=== PATIENT | female | born 1965 | race Caucasian/White ===

== ENCOUNTER → 2022-03-12 12:40 | Outpatient (CLI) | payer BC, SELFPAY ==
--- NOTE | ~2022-03-12 | XR_ITS ---
XR wrist RT min 3V DATE: 03/12/2022 13:00 INDICATION: Right wrist pain. No injury. TECHNIQUE: 4 views COMPARISON: None FINDINGS: There is osteoarthritis at the first carpometacarpal and some of the interphalangeal joints , primarily distal interphalangeal joints. No fracture or dislocation, periosteal reaction or bone destruction, erosive change or chondrocalcino sis. IMPRESSION: Mild osteoarthritis Reviewed, dictated and finalized at location B. IMPRESSION: Mild osteoarthritis
--- NOTE | ~2022-03-12 | XR_ITS ---
XR wrist LT min 3V DATE: 03/12/2022 13:00 INDICATION: Left wrist pain. No injury. TECHNIQUE: 4 views COMPARISON: None FINDINGS: There is mild osteoarthritis at the first carpometacarpal and at some of the interphalangea l joints, greater at the DIP joints. No fracture or dislocation, periosteal reaction or bone destruction, erosive change or chondrocalcino sis. IMPRESSION: Mild osteoarthritis Reviewed, dictated and finalized at location B. IMPRESSION: Mild osteoarthritis
== END ==
DX: M19.031 Primary osteoarthritis, right wrist (principal); M19.032 Primary osteoarthritis, left wrist
CPT/HCPCS: 73110

== ENCOUNTER 2022-04-24 09:25 | Outpatient (CLI) | payer BC, SELFPAY ==
--- NOTE | ~2022-04-24 | MMUS_ITS ---
EXAMINATION: MM diagnostic [facility] BI w niki, US breast LT limited HISTORY: Left breast lump, present since 2014 but increased in size recently TECHNIQUE: ML, MLO and CC 3-D tomosynthesis images of both breasts were performed and synthetic 2-D i mages were generated. CAD analysis was submitted and interpreted. High resolution targeted lower mid left breast ultrasound at area of clinical complaint of enlarging breast lump breast was performed. COMPARISON: 10/18/2015 diagnostic left mammogram 09/12/2015 diagnostic left mammogram and limited left breast ultrasound FINDINGS: MAMMOGRAPHIC FINDINGS: There is an approximately 2.5 x 3 cm circumscribed low-density opacity at the area of clinical compla int of left breast lump in the lower central posterior left breast. No other suspicious mass of either breast is noted. Numerous bilateral benign breast calcifications are noted, including some prominent calcifications of fat necrosis, benign, on the left. ULTRASOUND: 5:00 8 cm from nipple: There is a parallel circumscribed heterogeneous hypoechoic 18.5 x 24.8 x 33.5 mm mass, with through transmission. While the sonographic and mammographic features are more suggesti ve of benign behavior, the increase in size and postmenopausal patient is of concern and warrants ult rasound-guided biopsy of this mass. IMPRESSION: 1. Enlarged up to 3.3 cm heterogeneous solid mass 5:00 8 cm from nipple 2. Ultrasound-guided biopsy is recommended BI-RADS category 4, suspicious findings. Reviewed, dictated and finalized at location A. IMPRESSION: 1. Enlarged up to 3.3 cm heterogeneous solid mass 5:00 8 cm from nipple 2. Ultrasound-guided biopsy is recommended BI-RADS category 4, suspicious findings.
== END 2022-04-24 09:26 | disposition home or self-care (01) ==
LOC: ANHIMG 09:27
PROVIDERS: PCP Internal Medicine; Visit Provider Nurse Practitioner
DX: R92.8 Other abnormal and inconclusive findings on diagnostic imaging of breast (principal)
CPT/HCPCS: 76642; 77062; 77066; G0279

== ENCOUNTER 2022-04-24 09:28 | Outpatient (CLI) | payer BC, SELFPAY ==
--- NOTE | 2022-04-24 11:30 | NEURO_ITS ---
Impression: # Complains of pain and numbness of hands. # Mild evolving bilateral Carpal Tunnel Syndrome. # Needle/EMG exam mildly neurogenic. # Higher involvement needs to be ruled out. Nerve Conduction Studies Anti Sensory Summary Table Stim Site NR Peak (ms) P-T Amp (?V) Site1 Site2 Delta-P (ms) Dist (cm) Rito (m/s) Left Median Anti Sensory (2-3nd Digit) Wrist 2.8 94.3 Wrist 2-3nd Digit 2.8 14.0 50 Wrist 3.1 69.2 Wrist 2-3nd Digit 2.8 14.0 50 Right Median Anti Sensory (2-3nd Digit) Wrist 2.8 53.1 Wrist 2-3nd Digit 2.8 14.0 50 Wrist 2.9 75.8 Wrist 2-3nd Digit 2.8 14.0 50 Left Radial Anti Sensory (Base 1st Digit) Wrist 2.3 29.9 Wrist Base 1st Digit 2.3 0.0 Right Radial Anti Sensory (Base 1st Digit) Wrist 2.4 30.5 Wrist Base 1st Digit 2.4 0.0 Left Ulnar Anti Sensory (5th Digit) Wrist 2.2 72.1 Wrist 5th Digit 2.2 14.0 64 Right Ulnar Anti Sensory (5th Digit) Wrist 2.3 48.3 Wrist 5th Digit 2.3 14.0 61 Motor Summary Table Stim Site NR Onset (ms) O-P Amp (mV) Site1 Site2 Delta-0 (ms) Dist (cm) Rito (m/s) Left Median Motor (Abd Poll Brev) Wrist 3.3 2.4 Elbow Wrist 5.0 28.0 56 Elbow 8.3 1.6 Right Median Motor (Abd Poll Brev) Wrist 3.9 2.5 Elbow Wrist 4.9 26.0 53 Elbow 8.8 1.9 Left Ulnar Motor (Abd Dig Minimi) Wrist 2.1 4.7 A Elbow Wrist 4.9 28.0 57 A Elbow 7.0 3.7 Right Ulnar Motor (Abd Dig Minimi) Wrist 2.7 4.3 A Elbow Wrist 4.8 27.0 56 A Elbow 7.5 3.5 F Wave Studies NR F-Lat (ms) L-R F-Lat (ms) Left Median (Mrkrs) (Abd Poll Brev) 26.43 0.86 Right Median (Mrkrs) (Abd Poll Brev) 27.29 0.86 Left Ulnar (Mrkrs) (Abd Dig Min) 27.19 0.39 Right Ulnar (Mrkrs) (Abd Dig Min) 27.58 0.39 EMG Side Muscle Nerve Root Ins Act Fibs Amp Dur Recrt Comment Right 1stDorInt Ulnar C8-T1 Nml Nml Nml >12ms Reduced Right Ext Indicis Radial (Post Int) C7-8 Nml Nml Nml Nml Nml Right Ext Digitorum Radial (Post Int) C7-8 Nml Nml Nml Nml Nml Right BrachioRad Radial C5-6 Nml Nml Nml Nml Nml Right PronatorTeres Median C6-7 Nml Nml Nml Nml Nml Right Abd Poll Brev Median C8-T1 Nml Nml Nml Nml Nml Left 1stDorInt Ulnar C8-T1 Nml Nml Nml >12ms Reduced Left Ext Indicis Radial (Post Int) C7-8 Nml Nml Nml Nml Nml Left Ext Digitorum Radial (Post Int) C7-8 Nml Nml Nml Nml Nml Left BrachioRad Radial C5-6 Nml Nml Nml Nml Nml Left PronatorTeres Median C6-7 Nml Nml Nml Nml Nml Left Abd Poll Brev Median C8-T1 Nml Nml Nml Nml Nml MTDD
== END 2022-04-24 09:29 | disposition home or self-care (01) ==
PROVIDERS: PCP Internal Medicine; Visit Provider Plastic Surgery
DX: R20.2 Paresthesia of skin (principal); G56.03 Carpal tunnel syndrome, bilateral upper limbs
CPT/HCPCS: 76642; 77062; 77066; 95886; 95911; G0279

== ENCOUNTER 2022-07-16 10:04 | Outpatient (CLI) | payer BC, SELFPAY ==
--- NOTE | ~2022-07-16 | DEXA_ITS ---
Bone Density Report Name: KALPANA WOOD Age: 57 Sex: Female Ethnicity: White Date of : 1965 Indication: postmenopausal; screening for osteoporosis; prior fracture; Referring Provider: LAURYN RILEY Study: Bone densitometry was performed. Exam Date: July 16, 2022 Accession number: [id number] Bone Density: Region BMD T-score Z-score Classification AP Spine(L1-L4) 1.219 1.6 2.7 Normal Femoral Neck (Left) 0.775 -0.7 0.4 Normal Total Hip (Left) 0.891 -0.4 0.3 Normal Femoral Neck (Right) 0.819 -0.3 0.8 Normal Total Hip (Right) 0.920 -0.2 0.5 Normal Total Hip Mean 0.905 -0.3 0.4 Normal World Health Organization criteria for BMD impression classify patients as: Normal (T-score at or above -1.0), Osteopenia (T-score between -1.0 and -2.5), or Osteoporosis (T-score at or below -2.5). 10-year Fracture Risk: FRAX not reported because: All T-scores for Spine Total, Hip Total, Femoral Neck at or above -1.0 Clinical Information Provided by Patient: Has had a low trauma fracture Smokes Patient maximum height was 65 Menopause Age: 53 No regular weight bearing exercise Drinks caffeinated beverages Onset of menses at age 18 Number of children 1 Impression: The patient has normal bone mass. The patient has risk factors, including: smoking, previous fracture. Discussion: BONE DENSITY IS ABOVE THE MINIMUM DESIRABLE LEVEL AT ALL SKELETAL SITES TESTED. This patient?s bone mineral density is above the minimum desirable level (T-score -1.0 or better) at all sites measured. The patient should follow a healthful lifestyle (good nutrition with adequate calcium and vitamin D, and appropriate weight-bearing exercise). Follow-Up: Consider repeating this study in 5 years or sooner if there is some new clinical indication. Reported by: NIRAV on 07/16/2022 10:31:00 AM. Reviewed, dictated and finalized at location AShe AYOUB
== END 2022-07-16 10:05 | disposition home or self-care (01) ==
PROVIDERS: PCP Internal Medicine; Visit Provider Nurse Practitioner
DX: Z78.0 Asymptomatic menopausal state (principal)
CPT/HCPCS: 77080

== ENCOUNTER 2022-07-23 12:35 | Outpatient (CLI) | payer BC, SELFPAY ==
--- NOTE | ~2022-07-23 | MMUS_ITS ---
EXAMINATION: US breast biopsy LT w image, MM post biopsy invasive LT DATE: 07/23/2022 14:17 (accession [id number]), 07/23/2022 14:08 (accession [id number]) INDICATION: Enlarging mass in the lower outer quadrant of the left breast. Ultrasound-guided core bio psy is requested to evaluate for malignancy. TECHNIQUE AND FINDINGS: The risks and potential benefits of the procedure were discussed with the patient including bleeding and infection. A time out was performed. The skin of the left breast was prepared and draped in usual sterile fashion. 1% lidocaine was used for superficial anesthesia. 1% lidocaine with epinephrine was used for deep anesthesia. A vacuum-assisted biopsy needle was advanced through to the outer edge of the region of interest from a lateral approach utilizing sonographic guidance. A total of five tissue core samples were obtained through the lesion. A tissue marker clip was then placed at the biopsy site. Hemostasis was achieved . A sterile bandage was applied. The patient tolerated procedure well and there was no evidence of immediate complication. The patient was given verbal instructions to return to the Emergency Department in the event of severe breast pa in or rapid breast enlargement. A two view left breast mammogram was obtained to document tissue flower er clip placement. IMPRESSION: 1. Successful ultrasound-guided vacuum-assisted biopsy of left breast mass with tissue marker placeme nt. Reviewed, dictated and finalized at location A. IMPRESSION: 1. Successful ultrasound-guided vacuum-assisted biopsy of left breast mass with tissue marker placement.
== END 2022-07-23 12:36 | disposition home or self-care (01) ==
PROVIDERS: PCP Internal Medicine; Visit Provider Nurse Practitioner
DX: N63.20 Unspecified lump in the left breast, unspecified quadrant (principal)
CPT/HCPCS: 19083; 88305; A4648

== ENCOUNTER 2023-04-08 09:06 | Emergency (ER) | payer BC, SELFPAY ==
[2023-04-08 09:14] VITALS: BP 125/81; PULSE 96; RESP 16; TEMP 36.8; O2SAT 98
--- NOTE | 2023-04-08 09:14 | ED.SKABFB ---
HPI - Skin/Abscess/Foreign Bdy General Chief complaint: Skin/Abscess/Foreign Body Stated complaint: Poison Selina Time Seen by Provider: 04/08/23 09:14 Source: patient and RN notes reviewed History of Present Illness HPI narrative: Patient is a 57-year-old female who presents to urgent care with complaints of poison selina to bilateral legs, arms, feet and now feeling the tingling/rash on her face. Patient states that she believes she got in contact with the poison selina approximately 1 week ago while working in the [employer]. Patient has been using itch spray and triamcinolone. No other acute complaints. No acute distress noted. Patient aware of the plan of care. Some parts of this dictation were generated by voice recognition software and may contain typographical and/or grammatical inaccuracies. Related Data Allergies Allergy/AdvReac Type Severity Reaction Status Date / Time No Known Allergies Allergy Unknown Verified 01/21/23 09:56 Review of Systems Review of Systems: CONSTITUTIONAL: Denies fever, chills, or sweats. EYES: Denies visual changes, redness, or discharge. ENT: Denies rhinorrhea, congestion, sore throat, or otalgia. CARDIOVASCULAR: Denies chest pain, palpitations, or edema. RESPIRATORY: Denies cough or dyspnea. GASTROINTESTINAL: Denies abdominal pain, nausea, vomiting, or diarrhea. GENITOURINARY: Denies dysuria or hematuria. SKIN: Reports of poison selina to bilateral feet, bilateral legs, and right arm MUSCULOSKELETAL: Denies back pain, joint pain, or myalgia. NEUROLOGIC: Denies headache, numbness, or weakness. All other systems reviewed are negative, except as documented in HPI. FORMERLY [facility], [facility] Past Medical History Medical History (Updated 04/08/23 @ 09:39 by MARSHA Sifuentes) Breast lump Difficulty sleeping Dyslipidemia Surgical History Surgical History H/O abdominoplasty H/O breast biopsy Hx of breast reduction, elective Family History Family History Father Hypertension Family history of elevated blood lipids Family history of diabetes mellitus in first degree relative Lung cancer Bone cancer Mother Hypertension Family history of elevated blood lipids Family history of diabetes mellitus in first degree relative Other Bladder cancer Social History Social History Smoking packs per day: 0.75 Smoking cigarettes per day: 15.0 Smoking status: Current every day smoker Tobacco type: cigarettes Alcohol intake: current Drinks per week: 10 Alcohol use details: social Substance use: never Substance use type: does not use Lack of Transportation: No Lack of Food: Never True Current Housing: I Have Housing Concerned About Future Housing: No Difficulty Paying Gas/Electric Bills: No Difficulty Paying for Meds: No Currently Unemployed: No Education: Trade/Vocational Certificate Difficulty w/ Childcare or Family Care: No Living arrangements: with family Occupation/Education: occupation Gender identity (if verbalized by the patient): Female Sexual Orientation (if Verbalized by the Patient): Straight or Heterosexual Comments At the time of my signature, I reviewed and agree with the nursing past medical, surgical, social, and family history. There is no relevant family history pertinent to the patient complaint. Exam Narrative: GENERAL: This is a well-nourished, well-developed patient, in no apparent distress. HEAD: normocephalic, atraumatic. EYES: PERRL. Sclera clear/white. Vision is grossly intact. EARS: External ears normal NOSE: External nose normal with no obvious nasal discharge, nares without redness, no rhinorrhea. THROAT: Mucous membranes moist NECK: Neck supple SKIN: Raised pureed take erythema bruise dermatitis noted to posterior right lower leg right upper, bilateral dorsal feet,
== END 2023-04-08 09:44 | disposition home or self-care (01) ==
PROVIDERS: Emergency Provider Nurse Practitioner Family
DX: L23.7 Allergic contact dermatitis due to plants, except food (principal); F17.210 Nicotine dependence, cigarettes, uncomplicated; E78.5 Hyperlipidemia, unspecified
CPT/HCPCS: 99213; G0463

== ENCOUNTER → 2023-10-05 09:47 | Outpatient (CLI) | payer BC, SELFPAY ==
--- NOTE | ~2023-10-05 | MM_ITS ---
EXAMINATION: MM screening [facility] BI w niki HISTORY: Screening mammogram TECHNIQUE: Craniocaudal and mediolateral oblique 3-D tomosynthesis images were obtained and synthetic 2-D images were generated. CAD analysis was submitted and interpreted. COMPARISON: 04/24/2022, 10/18/2015, 09/12/2015, 08/31/2015, 08/17/2014 BREAST PARENCHYMAL COMPOSITION: There are scattered areas of fibroglandular density. FINDINGS: There are stable areas of fat necrosis in the inner left breast. In addition, there is a le ft breast mass with biopsy change. No suspicious mass, calcification, or architectural distortion are identified in either breast to suggest malignancy. There has been no suspicious interval change. IMPRESSION: 1. No mammographic evidence of malignancy. 2. Recommend routine screening mammography in one year. BI-RADS Category 2: Benign finding(s). Reviewed, dictated and finalized at location A. IC RELATIONS SPECIALIST
== END ==
PROVIDERS: PCP Student in an Organized Health Care Education/Training Program; Visit Provider Student in an Organized Health Care Education/Training Program
DX: Z12.31 Encounter for screening mammogram for malignant neoplasm of breast (principal)
CPT/HCPCS: 77063; 77067

== ENCOUNTER 2023-12-21 09:09 | Emergency (ER) | payer BC, SELFPAY ==
--- NOTE | ~2023-12-21 | XR_ITS ---
EXAMINATION: XR chest 2V DATE: 12/21/2023 09:49 INDICATION: Cough and congestion TECHNIQUE: PA and lateral views of the chest were obtained. COMPARISON: Chest radiograph dated 09/09/2014 FINDINGS: Mild opacities at the left costophrenic angle which could represent atelectasis or pneumonia. No othe r airspace opacities, pulmonary edema, pleural effusion or pneumothorax. The cardiomediastinal silhou ette is normal. Mild S-shaped curvature of the thoracic and lumbar spine with mild to moderate spondy losis. Chronic mild anterior wedging of a lower thoracic vertebral body. IMPRESSION: 1. Mild opacities at the left costophrenic angle which could represent atelectasis or pneumonia. Reviewed, dictated and finalized at location A. CUTTER APPRENTICE IMPRESSION: 1. Mild opacities at the left costophrenic angle which could represent atelecta sis or pneumonia.
[2023-12-21 09:20] VITALS: BP 124/83; PULSE 118; RESP 16; TEMP 36.7; O2SAT 96
--- NOTE | 2023-12-21 09:42 | ED.URI ---
HPI - URI/Sore Throat General Chief Complaint: Upper Respiratory Infection Stated Complaint: Flu symptoms Time Seen by Provider: 12/21/23 09:35 Source: patient and RN notes reviewed Mode of arrival: ambulatory Limitations: no limitations History of Present Illness HPI Narrative: Patient presents today complaining of 5 day history of cough, body aches, fever up to 102, and chest wall pain with coughing. Denies congestion, rhinorrhea, sore throat. She has tried some homeopathic mouth drops that are supposed to help with chest congestion. Denies history of asthma or COPD. She is a smoker. Related Data Allergies Allergy/AdvReac Type Severity Reaction Status Date / Time No Known Allergies Allergy Unknown Verified 12/21/23 09:40 Review of Systems Review of Systems: CONSTITUTIONAL: Denies chills, or sweats.+ body aches, fever EYES: Denies visual changes, redness, or discharge. ENT: Denies rhinorrhea, congestion, sore throat, or otalgia. CARDIOVASCULAR: Denies chest pain, palpitations, or edema. RESPIRATORY: + cough, chest wall pain GASTROINTESTINAL: Denies abdominal pain, nausea, vomiting, or diarrhea. GENITOURINARY: Denies dysuria or hematuria. SKIN: Denies rash, itching, or wounds. MUSCULOSKELETAL: Denies back pain, joint pain, or myalgia. NEUROLOGIC: Denies headache, numbness, tingling, or weakness. PSYCH: Denies depression or anxiety. [facility] Past Medical History Medical History Breast lump Difficulty sleeping Dyslipidemia Surgical History Surgical History H/O abdominoplasty H/O breast biopsy Hx of breast reduction, elective Family History Family History Father Hypertension Family history of elevated blood lipids Family history of diabetes mellitus in first degree relative Lung cancer Bone cancer Mother Hypertension Family history of elevated blood lipids Family history of diabetes mellitus in first degree relative Other Bladder cancer Social History Social History Smoking packs per day: 0.75 Smoking cigarettes per day: 15.0 Smoking status: Current every day smoker Tobacco type: cigarettes Alcohol intake: current Drinks per week: 10 Alcohol use details: social Substance use: never Substance use type: does not use Lack of Transportation: No Lack of Food: Never True Current Housing: I Have Housing Concerned About Future Housing: No Difficulty Paying Gas/Electric Bills: No Difficulty Paying for Meds: No Currently Unemployed: No Education: Trade/Vocational Certificate Difficulty w/ Childcare or Family Care: No Living arrangements: with family Occupation/Education: occupation Gender identity (if verbalized by the patient): Female Sexual Orientation (if Verbalized by the Patient): Straight or Heterosexual Comments At time of signature, I have reviewed and agree with nursing past medical, surgical, social and family history unless otherwise noted. Please see nursing chart for further information. There is no relevant family history pertinent to the presenting complaint Exam Narrative: GENERAL: Ill-appearing, well-nourished, and in no acute distress. HEAD: Normocephalic, atraumatic. EYES: EOMI. No redness or drainage. Conjunctivae normal. ENT: Mucous membranes pink and moist. Nares clear. No rhinorrhea. TMs normal bilaterally. Throat normal. Uvula midline. NECK: Normal AROM. Supple. No lymphadenopathy. CHEST: No respiratory distress. Deep breath elicits coughing episodes. Rhonchi in the bilateral bases. Expiratory wheeze in the right lower lobe. HEART: Regular rate and rhythm. No murmur appreciated. EXTREMITIES: Normal range of motion. No edema. SKIN: Warm, dry, no rash. Capillary refill normal. N
== END 2023-12-21 10:07 | disposition home or self-care (01) ==
PROVIDERS: Emergency Provider Nurse Practitioner
DX: J18.9 Pneumonia, unspecified organism (principal); F17.210 Nicotine dependence, cigarettes, uncomplicated; E78.5 Hyperlipidemia, unspecified
CPT/HCPCS: 71046; 87426; 87804; 99213; G0463

== ENCOUNTER 2023-12-30 14:42 | Outpatient (CLI) | payer BC, SELFPAY ==
--- NOTE | ~2023-12-30 | XR_ITS ---
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 RESULT: Lines, tubes, and devices: None. Lungs and pleura: Decreasing reticulonodular opacities in the left costophrenic angle. Decreasing di ffuse reticular opacities and cuffing. Cardiomediastinal silhouette: Stable. Other: No acute osseous or upper abdominal finding. IMPRESSION: Improving pulmonary opacities, likely representing improving infection/bronchiolitis. Reviewed, dictated and finalized at location K. KEEPING SUPERVISOR IMPRESSION: Improving pulmonary opacities, likely representing improving infection/bronchio litis.
== END 2023-12-30 14:43 | disposition home or self-care (01) ==
PROVIDERS: PCP Nurse Practitioner Family; Visit Provider Nurse Practitioner Family
DX: R05.9 Cough, unspecified (principal); Z87.01 Personal history of pneumonia (recurrent); R91.8 Other nonspecific abnormal finding of lung field
CPT/HCPCS: 71046

== ENCOUNTER 2024-05-22 14:43 | Outpatient (CLI) | payer BC, SELFPAY ==
--- NOTE | ~2024-05-22 | US_ITS ---
EXAMINATION: US soft tissue UE LT DATE: 05/22/2024 14:57 INDICATION: Localized swelling, mass and lump at the posterior left wrist TECHNIQUE: Multiple grayscale and Doppler ultrasound images of the region of concern at the posterior left wrist were obtained. COMPARISON: None FINDINGS: There is a 1.6 x 1.5 x 1.4 cm anechoic likely ganglion cyst at the region of concern which based upon the contour of the bones appears to overlie the carpus. On the cine images there appears to be a hyp oechoic tract extending deep to the wrist joint with small amount of additional anechoic fluid at the dorsal recess of the wrist joint. IMPRESSION: 1. 1.6 cm ganglion cyst the dorsal aspect of the carpus which appears to arise from the wrist joint. Reviewed, dictated and finalized at location A.
== END 2024-05-22 14:44 ==
PROVIDERS: PCP Plastic Surgery; Visit Provider Nurse Practitioner Family
DX: R22.32 Localized swelling, mass and lump, left upper limb (principal)
CPT/HCPCS: 76882

== ENCOUNTER 2024-09-17 16:50 | Emergency (ER) | payer BC, SELFPAY ==
--- NOTE | 2024-09-17 16:54 | ED_ITS ---
HPI - URI/Sore Throat General Chief Complaint: Upper Respiratory Infection Stated Complaint: Sinus Infection Symptoms Time Seen by Provider: 09/17/24 16:58 Source: patient Mode of arrival: ambulatory Limitations: no limitations History of Present Illness HPI Narrative: Radha is a 59-year-old female patient presenting to the clinic today with complaints possible sinus infection. She reports she has nasal congestion, productive cough with some yellow phlegm, and sinus pressure x3 weeks. Denies any fever or chills. Denies any shortness of breath or chest pain. She is a current smoker MD elicited complaint: cough, nasal congestion and other (Sinus pressure) Related Data Allergies Allergy/AdvReac Type Severity Reaction Status Date / Time No Known Allergies Allergy Unknown Verified 09/17/24 17:04 Review of Systems Review of Systems: Pertinent positives per HPI. Patient denies any fever, chills, rash, visual changes, dizziness, shortness of breath, chest pain, palpitations, nausea, vomiting, diarrhea, constipation, abdominal pain, or any urinary issues. [facility] Past Medical History Medical History Breast lump Difficulty sleeping Dyslipidemia Screening mammogram for breast cancer Surgical History Surgical History H/O abdominoplasty H/O breast biopsy Hx of breast reduction, elective Family History Family History Father Hypertension Family history of elevated blood lipids Family history of diabetes mellitus in first degree relative Lung cancer Bone cancer Mother Hypertension Family history of elevated blood lipids Family history of diabetes mellitus in first degree relative Other Bladder cancer Social History Social History Smoking packs per day: 0.75 Smoking cigarettes per day: 15.0 Smoking status: Current every day smoker Tobacco type: cigarettes Alcohol intake: current Drinks per week: 10 Alcohol use details: social Substance use: never Substance use type: does not use Lack of Transportation: No Lack of Food: Never True Current Housing: I Have Housing Concerned About Future Housing: No Difficulty Paying Gas/Electric Bills: No Difficulty Paying for Meds: No Currently Unemployed: No Education: Trade/Vocational Certificate Difficulty w/ Childcare or Family Care: No Living arrangements: with family Occupation/Education: occupation Gender identity (if verbalized by the patient): Female Sexual Orientation (if Verbalized by the Patient): Straight or Heterosexual Comments At the time of my signature, I reviewed and agree with the nursing past medical, surgical, social, and family history. There is no relevant family history pertinent to the patient complaint. Exam Narrative: General: Well-developed, well nourished, in no apparent distress Head: Normocephalic, atraumatic Eyes: Pupils equally round and reactive to light bilaterally, EOM intact, sclera and conjunctive clear, no discharge, lids normal Ears: TMs intact and clear, ear canals clear, no drainage, grossly hearing normal. Nose: Nares patent, yellow nasal discharge, moderate inflammation, frontal sinus tenderness. Mouth: Oral pharynx red without lesions or masses, good dentition, MMM. Postnasal drip Neck: Supple, trachea midline, no enlargement of anterior or posterior cervical nodes, no thyroid masses or goiter palpable. Cardio: Regular rate and rhythm, s1 and s2 normal, no murmur appreciated. Resp: Inspiratory and expiratory wheezing, no rhonchi, rales, or rubs Course Course Emergency Course: Portions of this record may have been created with voice recognition software. Level of Care: Express Care Visit Vital Signs Vital signs: Vital signs reviewed MDM - URI/Sore Throat MDM Narrative Medical decision making narrative: At the time of visit patient is resting comfortably on the exam table. Patient appears to be nontoxic. Plan: I suspect patient has sinusitis/bronchitis. Prescription for prednisone and Augmentin was sent to the pharmacy. Patient already has albuterol inhaler at home. Supportive measures were discussed with the patient and they voiced understanding discharge instructions and agrees to treatment plan. Return precautions reviewed Differential Diagnosis Differential diagnosis: Likely upper respiratory infection, croup, otitis media, sinusitis, viral infection, bronchitis, influenza, pharyngitis and other (COVID, pneumonia) Discharge Plan Discharge Clinical Impression: Sinobronchitis Patient Disposition: Home, Self-Care Condition: Stable Instructions: Antibiotic Form, Sinusitis (ED), Acute Bronchitis (ED) Additional Instructions: Take prescription medications only as prescribed-prednisone and Augmentin Continue albuterol inhaler as needed Increase fluids and stay well hydrated Tylenol/motrin for pain/fever Flonase and OTC antihistamines as directed Vicks vapor rub to open sinuses Sinus rinses for congestion Cepacol spray, cough drops, throat lozenges, warm tea with honey/lemon, gargle salt water to soothe throat BRAT diet for diarrhea Clear liquids x 24 hours then advance as tolerated for nausea/vomiting Go to the ED if you develop a worsening in your condition- high fever not controlled by Tylenol or Motrin, dehydration, weakness, lethargy, shortness of breath, or chest pain. Follow up with your PCP in 3-5 days if symptoms persist. Prescriptions: New amoxicillin-pot clavulanate 875-125 mg tablet 1 tablet PO Q12H 10 Days Qty: 20 0RF prednisone 20 mg tablet 40 mg PO DAILY 5 Days Qty: 10 0RF Follow-up/Referrals: PHYSICIAN,REGIONAL RECRUITER [Primary Care Provider] - Time of Disposition: 17:10 Quality NIHSS Nursing Documentation ED NIHSS nursing documentation: reviewed/agree
[2024-09-17 17:05] VITALS: BP 145/86; PULSE 114; RESP 16; TEMP 36.6; O2SAT 99
== END 2024-09-17 17:21 | disposition home or self-care (01) ==
PROVIDERS: Emergency Provider Nurse Practitioner Family
DX: J40 Bronchitis, not specified as acute or chronic (principal); F17.210 Nicotine dependence, cigarettes, uncomplicated
CPT/HCPCS: 99213; G0463

== ENCOUNTER 2024-12-11 13:56 | Outpatient (CLI) | payer BC, SELFPAY ==
--- NOTE | ~2024-12-11 | MM_ITS ---
EXAMINATION: MM screening [facility] BI w niki HISTORY: Screening TECHNIQUE: Craniocaudal and mediolateral oblique 3-D tomosynthesis images were obtained and synthetic 2-D images were generated. CAD analysis was submitted and interpreted. COMPARISON: Comparison to multiple prior studies sequentially, with oldest reviewed study dated 08/05. BREAST PARENCHYMAL COMPOSITION: Not dense: There are scattered areas of fibroglandular density. FINDINGS: There is an enlarging left breast mass in the lower central aspect of the left breast, post erior third. There is associated internal tissue marker. There are benign breast calcifications. No e vidence for malignancy in the right breast. IMPRESSION: 1. Enlarging circumscribed left breast mass lower central breast, posterior third. 2. Recommend further evaluation with left breast ultrasound. BI-RADS Category 0: Incomplete: Needs additional imaging evaluation. 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 Enlarging circumscribed left breast mass lower central breast, posterior thi rd. 2. Recommend further evaluation with left breast ultrasound. BI-RADS Category 0: Incomplete: Needs additional imaging evaluation.
== END 2024-12-11 13:57 | disposition home or self-care (01) ==
LOC: MICIMG 13:57
PROVIDERS: PCP Surgery Plastic and Reconstructive Surgery; Visit Provider Student in an Organized Health Care Education/Training Program
DX: Z12.31 Encounter for screening mammogram for malignant neoplasm of breast (principal); N63.20 Unspecified lump in the left breast, unspecified quadrant
CPT/HCPCS: 77063; 77067

== ENCOUNTER 2025-01-06 08:15 | Outpatient (CLI) | payer BC, SELFPAY ==
--- NOTE | ~2025-01-06 | US_ITS ---
EXAMINATION TYPE: US breast LT limited COMPARISON: Mammography dated 12/11/2024 and 10/05/2023 REASON FOR STUDY: Z12.31 - Encounter for screening mammogram for malignant ... TECHNIQUE: Targeted sonographic evaluation of the left breast was performed. INTERPRETATION: At the 5:00 position left breast, 8 cm from the nipple, there is a 4.3 x 3.0 x 2.5 cm circumscribed, parallel mass with some internal heterogeneity. There is posterior through transmission. IMPRESSION: 4.3 x 3.0 x 2.5 cm circumscribed mass at 5:00 position left breast, as detailed above. Though mildly increased in size since 2022, the lesion demonstrates overall benign characteristics, and has been pr esumably biopsied as evidence by biopsy markers within the mass on mammography. 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 Correlate with prior biopsy results. BI-RADS CATEGORY: BI-RADS 2: Benign Reviewed, dictated and finalized at location . 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 Though mildly increased in size since 2022, the lesion demonstrates ove rall benign characteristics, and has been presumably biopsied as evidence by bi opsy markers within the mass on mammography. 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 Correlate with prior biopsy results. BI-RADS CATEGORY: BI-RADS 2: Benign
== END 2025-01-06 08:16 | disposition home or self-care (01) ==
LOC: MICIMG 08:16
PROVIDERS: PCP Surgery Plastic and Reconstructive Surgery; Visit Provider Student in an Organized Health Care Education/Training Program
DX: Z12.31 Encounter for screening mammogram for malignant neoplasm of breast (principal); N63.23 Unspecified lump in the left breast, lower outer quadrant
CPT/HCPCS: 76642

== ENCOUNTER 2025-10-22 15:03 | Emergency (ER) | payer BC, SELFPAY ==
--- NOTE | ~2025-10-22 | XR_ITS ---
EXAMINATION: XR chest 2V, 10/22/2025 15:57 RN PATIENT CARE HISTORY: cough and l/g temp x 1.5 wks, hx pna COMPARISON: No comparisons available. Technique: 2 views obtained. Findings: The lungs are clear, no effusion. No pneumothorax. Heart is normal size. Mediastinal and hilar contours are within normal limits. Bony thorax no acute abnormality. Impression: No acute cardiopulmonary abnormality. Reviewed, dictated and finalized at location P. PATIENT CARE Impression: No acute cardiopulmonary abnormality.
[2025-10-22 15:17] VITALS: BP 145/91; PULSE 123; RESP 18; TEMP 37.3; O2SAT 94
[2025-10-22 15:40] VITALS: PULSE 118; RESP 22; O2SAT 94
--- NOTE | 2025-10-22 16:19 | ED.URI ---
HPI - URI/Sore Throat General Chief Complaint: Upper Respiratory Infection Stated Complaint: Thinks she has Pneumonia Time Seen by Provider: 10/22/25 16:19 Source: patient Mode of arrival: ambulatory Limitations: no limitations History of Present Illness HPI Narrative: 60-year-old female presented for complaint cough x9 days. Endorses wheezing and shortness of breath with minimal exertion. Denies n/v/d/f/c. States she has had several respiratory sicknesses since Halloween. Uses albuterol rescue inhaler, but says it makes her jittery. Hx pna. Former smoker, quit x1 year. Related Data Allergies Allergy/AdvReac Type Severity Reaction Status Date / Time No Known Allergies Allergy Unknown Verified 10/22/25 15:16 Review of Systems Review of Systems: per HPI All systems reviewed & are unremarkable except as noted in HPI and below PMFSH Past Medical History Medical History Breast lump Difficulty sleeping Dyslipidemia Screening mammogram for breast cancer Surgical History Surgical History H/O abdominoplasty H/O breast biopsy Hx of breast reduction, elective Family History Family History Father Hypertension Family history of elevated blood lipids Family history of diabetes mellitus in first degree relative Lung cancer Bone cancer Mother Hypertension Family history of elevated blood lipids Family history of diabetes mellitus in first degree relative Other Bladder cancer Social History Social History Smoking packs per day: 0.75 Smoking cigarettes per day: 15.0 Smoking status: Current every day smoker Tobacco type: cigarettes Alcohol intake: current Drinks per week: 10 Alcohol use details: social Substance use: never Substance use type: does not use Lack of Transportation: No Lack of Food: Never True Current Housing: I Have Housing Concerned About Future Housing: No Difficulty Paying Gas/Electric Bills: No Difficulty Paying for Meds: No Currently Unemployed: No Education: Trade/Vocational Certificate Difficulty w/ Childcare or Family Care: No Living arrangements: with family Occupation/Education: occupation Gender identity (if verbalized by the patient): Female Sexual Orientation (if Verbalized by the Patient): Straight or Heterosexual Comments At time of signature, I have reviewed and agree with nursing past medical, surgical, social and family history unless otherwise noted. Please see nursing chart for further information. There is no relevant family history pertinent to the presenting complaint Exam Narrative: GENERAL: Well-appearing, in no acute distress. EYES: EOMI. No redness or drainage. Conjunctivae normal. ENT: Mucous membranes pink and moist. No rhinorrhea. TMs normal bilaterally. Throat normal. Uvula midline. NECK: Normal AROM. Supple. CHEST: No respiratory distress. Wheezing and coarse to all bruno. 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 No murmur appreciated. ABDOMEN: Soft, nontender, nondistended, normal active bowel sounds. EXTREMITIES: Normal range of motion. No edema. SKIN: Warm, dry, no rash. Capillary refill normal. Normal skin turgor. NEURO: Alert and oriented x3. Gait steady. PSYCH: Normal affect. Course Course Level of Care: Express Care Visit Vital Signs Vital signs: Vital Signs Temperature 99.2 F 10/22/25 15:17 Pulse Rate 123 H 10/22/25 15:17 Respiratory Rate 18 10/22/25 15:17 Blood Pressure 145/91 H 10/22/25 15:17 Pulse Oximetry 94 10/22/25 15:17 Temperature 99.2 F 10/22/25 15:17 Pulse Rate 123 H 10/22/25 15:17 Respiratory Rate 18 10/22/25 15:17 Blood Pressure 145/91 H 10/22/25 15:17 Pulse Oximetry 94 10/22/25 15:17 [facility] Narrative Medical decision making narrative: CXR reviewed with pt, NAD Albuterol neb given Pt reassessed and reports significant improvement in breathing, states I feel human. lungs sound better with slight coarse on expiration. Discussed physical exam findings and RXs. Advised supportive measures and signs/symptoms to go to the ER. Pt is appropriate for outpt treatment and f/u. Differential Diagnosis Differential Diagnosis: bronchitis, pneumonia, chf, Imaging Data Radiologist's impression: ITS Impressions Chest X-Ray 10/22/25 16:15 Impression: No acute cardiopulmonary abnormality. Discharge Plan Discharge Clinical Impression: Bronchitis Patient Disposition: Home Condition: Stable Instructions: Antibiotic Form, Acute Bronchitis (ED) Additional Instructions: Acute bronchitis can be contagious because it is usually caused by infection with a virus or bacteria. It is usually for a few days but you can be contagious for up to one week. Take medication as directed Use your albuterol inhaler every 4-6 hours for the next few days over the counter Cough syrup may cause drowsiness; avoid driving or take it at night time. Tylenol every 8 hours as needed for pain Symptomatic treatment includes: rest, fluids, and increase humidity of the air at home. Follow up with your primary care provider as needed in 1 week Go to the ER for worsening symptoms or concerns Patient Language: Kinyarwanda Prescriptions: New prednisone 20 mg tablet 20 mg PO DAILY Qty: 18 0RF Rx Instructions: take 3 tablets daily for 3 days, then 2 tablets daily for 3 days then 1 tablet daily for 3 days amoxicillin-pot clavulanate 875-125 mg tablet 1 tablet PO Q12H 7 Days Qty: 14 0RF Follow-up/Referrals: Julia Santos APRN [Primary Care Provider, Internal Medicine]
[2025-10-22] MEDS: ALBUTEROL SULFATE NEB 2.5 MG/3 ML INH INHALATION (16:38)
[2025-10-22 17:00] VITALS: PULSE 123; RESP 20; O2SAT 91
== END 2025-10-22 17:16 | disposition home or self-care (01) ==
PROVIDERS: Emergency Provider Nurse Practitioner Family; PCP Nurse Practitioner Family
DX: J40 Bronchitis, not specified as acute or chronic (principal); E78.5 Hyperlipidemia, unspecified; Z87.891 Personal history of nicotine dependence
CPT/HCPCS: 71046; 94640; 99213; G0463